=== PATIENT | male | born 1985 | race Caucasian/White ===

== ENCOUNTER 2017-06-29 01:43 | Emergency (ER) | payer OTHER ==
[~2017-06-29] VITALS: Ht 180.3 cm; Wt 124.5 kg
[2017-06-29 01:52] VITALS: Ht 180.3 cm; Wt 124.5 kg
[2017-06-29 05:04] LABS: AMPHETAMINE QUAL UR NONE DETECTED (NEG <=1000)
[2017-06-29 05:29] LABS: BASOPHIL % 0.4 % (0-2); PLATELET COUNT 288 x10^3mcL (130-400); RED CELL DISTRIBUTION WIDTH 12.9 % (11.5-14.5)
[2017-06-29 06:03] LABS: CALCIUM 9.1 mg/dL (8.5-10.1); CARBON DIOXIDE 25.2 mmol/L (21-32); CHLORIDE SERUM 105 mmol/L (98-107); CREATININE SERUM 0.9 mg/dL (0.7-1.3); GFR1 > 60 mL/min; GLUCOSE SERUM 110 mg/dL (74-106); POTASSIUM SERUM 3.7 mmol/L (3.5-5.1); SODIUM SERUM 139 mmol/L (136-145)
[2017-06-29 06:36] VITALS: BP 136/84
== END 2017-06-29 06:36 | disposition home or self-care (01) ==
LOC: ED 01:43
PROVIDERS: Emergency Medicine
DX: R00.2 Palpitations (principal); I10 Essential (primary) hypertension; E78.00 Pure hypercholesterolemia, unspecified
CPT/HCPCS: 36415; Q0092

== ENCOUNTER 2017-08-07 00:29 | Emergency (ER) | payer OTHER ==
[~2017-08-07] VITALS: Ht 180.3 cm; Wt 122.5 kg
[2017-08-07 00:42] VITALS: Ht 180.3 cm; Wt 122.5 kg
[2017-08-07 03:33] VITALS: BP 135/74
== END 2017-08-07 03:33 | disposition home or self-care (01) ==
LOC: ED 00:29
DX: F41.1 Generalized anxiety disorder (principal); I10 Essential (primary) hypertension; E78.00 Pure hypercholesterolemia, unspecified
CPT/HCPCS: J2060

== ENCOUNTER 2017-09-27 03:21 | Emergency (ER) | payer OTHER ==
[~2017-09-27] VITALS: Ht 180.3 cm; Wt 119.9 kg
[2017-09-27 03:29] VITALS: Ht 180.3 cm; Wt 119.9 kg
[2017-09-27 04:38] LABS: BASOPHIL % 0.3 % (0-2); PLATELET COUNT 400 x10^3mcL (130-400); RED CELL DISTRIBUTION WIDTH 13.2 % (11.5-14.5)
[2017-09-27 04:45] LABS: CALCIUM 9.3 mg/dL (8.5-10.1); CARBON DIOXIDE 27.1 mmol/L (21-32); CHLORIDE SERUM 108 mmol/L (98-107); CREATININE SERUM 0.9 mg/dL (0.7-1.3); GFR1 > 60 mL/min; GLUCOSE SERUM 122 mg/dL (74-106); POTASSIUM SERUM 4.1 mmol/L (3.5-5.1); SODIUM SERUM 145 mmol/L (136-145)
[2017-09-27 05:35] VITALS: BP 139/79
== END 2017-09-27 05:35 | disposition home or self-care (01) ==
LOC: ED 03:21
PROVIDERS: Emergency Medicine
DX: M79.602 Pain in left arm (principal); I10 Essential (primary) hypertension; E78.00 Pure hypercholesterolemia, unspecified
CPT/HCPCS: 36415; Q0092

== ENCOUNTER 2019-11-15 22:06 | Emergency (ER) | payer OTHER ==
[~2019-11-15] VITALS: Ht 180.3 cm; Wt 121.6 kg
[2019-11-15 22:09] VITALS: Ht 180.3 cm; Wt 121.6 kg
[2019-11-15 23:21] LABS: CALCIUM 8.5 mg/dL (8.5-10.1); CARBON DIOXIDE 28.2 mmol/L (21-32); CHLORIDE SERUM 107 mmol/L (98-107); CREATININE SERUM 1.2 mg/dL (0.7-1.3); GFR1 > 60 mL/min; GLUCOSE SERUM 125 mg/dL (74-106); SODIUM SERUM 143 mmol/L (136-145)
[2019-11-15 23:26] LABS: ALBUMIN 3.7 g/dL (3.4-5.0); ALKALINE PHOSPHATASE 92 U/L (46-116); ALT/SGPT 82 U/L (16-63); AST/SGOT 39 U/L (15-37); TOTAL PROTEIN, SERUM 6.9 g/dL (6.4-8.2)
[2019-11-15 23:36] LABS: BASOPHIL % 0.5 % (0-2); PLATELET COUNT 322 x10^3mcL (130-400); RED CELL DISTRIBUTION WIDTH 13.5 % (11.5-14.5)
[2019-11-16 02:45] VITALS: BP 141/70
== END 2019-11-16 02:45 | disposition home or self-care (01) ==
LOC: ED 22:06
PROVIDERS: Emergency Medicine
DX: R42 Dizziness and giddiness (principal); R53.83 Other fatigue; E78.00 Pure hypercholesterolemia, unspecified
CPT/HCPCS: J7030

== ENCOUNTER 2020-03-09 11:26 | Emergency (ER) | payer OTHER ==
[~2020-03-09] VITALS: Ht 180.3 cm; Wt 122.5 kg
[2020-03-09 11:35] VITALS: Ht 180.3 cm; Wt 122.5 kg
[2020-03-09 13:09] VITALS: BP 126/80
== END 2020-03-09 13:09 | disposition home or self-care (01) ==
LOC: ED 11:26
DX: F41.1 Generalized anxiety disorder (principal); E78.00 Pure hypercholesterolemia, unspecified